=== PATIENT | female | born 1960 | race Hispanic/Latino ===

== ENCOUNTER 2022-10-20 22:59 | Emergency (ER) | payer BC ==
[~2022-10-20] VITALS: Ht 162.6 cm; Wt 82.6 kg
[2022-10-20 23:01] VITALS: BP 140/71
== END 2022-10-20 23:29 | disposition home or self-care (01) ==
LOC: EDH 22:59
DX: M79.644 Pain in right finger(s) (principal); M79.89 Other specified soft tissue disorders; Z90.49 Acquired absence of other specified parts of digestive tract; Z98.890 Other specified postprocedural states; Z88.8 Allergy status to other drugs, medicaments and biological substances
CPT/HCPCS: 99281

== ENCOUNTER 2022-12-10 15:26 | Emergency (ER) | payer BC ==
[~2022-12-10] VITALS: Ht 162.6 cm; Wt 80.7 kg
[2022-12-10] MEDS ORDERED: SOLU-MEDROL 125MG VIAL IM ONE (18:00)
[2022-12-10] MEDS ORDERED: FAMOTIDINE 20MG VIAL IV ONE (18:00)
[2022-12-10] MEDS ORDERED: 0.9%NACL 1000ML 546 ML IV ONE (18:00)
[2022-12-10] MEDS ORDERED: DiphenhydrAMINE HCL 50 MG/ML VIAL IV ONE (18:00)
[2022-12-10] MEDS ORDERED: DIPH-1242 PO (19:57)
[2022-12-10] MEDS ORDERED: PRED20TA3 PO (19:57)
[2022-12-10] MEDS ORDERED: FAMO-136 PO (19:57)
[2022-12-10] MEDS ORDERED: AMOX1TAB16 PO (19:57)
[2022-12-10] MEDS ORDERED: CEFTRIAXONE 1G VIAL IVPB ONE (20:00)
[2022-12-10 20:21] VITALS: BP 114/65; PULSE 74; RESP 16; O2SAT 98
== END 2022-12-10 20:33 | disposition home or self-care (01) ==
LOC: EDH 15:26
DX: T63.481A Toxic effect of venom of other arthropod, accidental (unintentional), initial encounter (principal); Z90.49 Acquired absence of other specified parts of digestive tract; Z98.890 Other specified postprocedural states; Y92.89 Other specified places as the place of occurrence of the external cause
CPT/HCPCS: 99284; 96365; 96361; 96375; 96372; J1200; J3490; J7030; J2930; J0696